=== PATIENT | male | born 1970 | race Caucasian/White ===

== ENCOUNTER 2024-09-05 11:27 | Day surgery (SDC) | payer OTHER ==
[~2024-09-05] VITALS: Ht 175.3 cm; Wt 76.4 kg
[~2024-09-05 11:27] MED LIST: IBLOOD GLUCOSE TEST STRIP 1 EA TEST VI PRN; LACTATED RINGER'S 1,000 ML IV SCH; LIDOCAINE HCL 1% 5 ML SDV INJ ONE; LIPITOR40 MG PO; LOW DOSE ASPIRI81 MG PO; METOPROLOL SUCC25 MG PO; MIDAZOLAM HCL 5 MG/5 ML VIAL IV PRN; VITAMIN B-12100 MCG PO; ZESTRIL10 MG PO; fentaNYL citrate 100 MCG/2 ML VIAL IV PRN
[2024-09-05 11:48] VITALS: BP 137/81
[2024-09-05] MEDS ORDERED: MIDAZOLAM HCL 5 MG/5 ML VIAL ONE (12:53)
[2024-09-05] MEDS ORDERED: fentaNYL citrate 100 MCG/2 ML VIAL ONE (12:53)
--- NOTE | 2024-09-05 14:10 | NUR ---
09/05/24 1410 Erlinda Savage 1402 PT TO PACU AWAKE DENIES PAIN REPORTS HE IS PASSING GAS.
[2024-09-05 14:31] VITALS: BP 116/78
--- NOTE | 2024-09-08 07:57 | OR ---
[facility] [address], [place] [address] Signed DATE OF OPERATION: 09/05/2024 SURGEON: Alla Guillen MD PREOPERATIVE DIAGNOSIS: Multiple polyps greater than 1 year ago (greater than 6). POSTOPERATIVE DIAGNOSIS: No evidence of polyps. PROCEDURE: Total colonoscopy to cecum. ANESTHESIA: Intravenous sedation; fentanyl 100 mcg and Versed 7 mg. INDICATION: This 54-year-old white man is a patient of Talat Freitas and underwent colonoscopy a year ago where he had more than 6 polyps in aggregate. He currently has no symptoms of bleeding, diarrhea, or constipation, but given the number of polyps last year, I did recommend a short-term interval surveillance colonoscopy. The risk of bleeding, infection, and perforation were reviewed with him. He understands and wished to proceed. FINDINGS: The prep was excellent. Complete colonoscopy was undertaken to the cecum with full intubation of the cecum. There was no evidence of polyps, although there were a few scattered diverticula. There are no other findings of note. DESCRIPTION OF PROCEDURE: The patient was brought to the endoscopy suite and placed in the lateral decubitus position, given intravenous sedation to the point of slurred speech and nystagmus. Digital rectal examination was normal. An Olympus video colonoscope was passed in the rectum and manipulated throughout the colon ultimately intubating the cecum itself. The ileocecal valve and appendiceal orifice were normal. The scope was withdrawn from that point and examination throughout showed no sign of abnormality, specifically no polyps, although there were few diverticula but minimal in amount and number. Retroflexed view of the rectum was normal. The scope was removed and the patient was taken to the recovery room in good condition. CONCLUDING DIAGNOSIS: Electronically Signed By: ALLA GUILLEN MD 09/08/24 0757 PATIENT NAME: GUERO BRAVO OPERATIVE REPORT DATE OF : 72 REPORT #: [id number] PHYSICIAN: ALLA GUILLEN MD PCP: TALAT FREITAS REPORT IS CONFIDENTIAL AND NOT TO BE RELEASED WITHOUT AUTHORIZATION [facility] [address] [place], [place] [address] Signed No evidence of polyps. PLAN: Recommend repeat colonoscopy in 10 years based on current guidelines, sooner if symptoms should develop. He will return to the ongoing care of ANGUS Hickey. MD IMAN Antonio/MODL /[id number] cc: ANGUS Hickey Copies: TALAT FREITAS ~ Electronically Signed By: ALLA GUILLEN MD 09/08/24 0757 PATIENT NAME: GUERO BRAVO OPERATIVE REPORT DATE OF : 72 REPORT #: [id number] PHYSICIAN: ALLA GUILLEN MD PCP: TALAT FREITAS REPORT IS CONFIDENTIAL AND NOT TO BE RELEASED WITHOUT AUTHORIZATION
== END 2024-09-05 14:40 | disposition home or self-care (01) ==
LOC: DS 11:27
PROVIDERS: ATTEND Surgery
PROC: 0DJD8ZZ Inspection of Lower Intestinal Tract, Via Natural or Artificial Opening Endoscopic (ICD-10-PCS; principal; 2024-09-05 13:00)
DX: Z12.11 Encounter for screening for malignant neoplasm of colon (principal); I25.2 Old myocardial infarction; Z72.89 Other problems related to lifestyle; Z79.899 Other long term (current) drug therapy; Z86.0100 Personal history of colon polyps, unspecified; Z87.19 Personal history of other diseases of the digestive system
CPT/HCPCS: 99153; G0500; J2250; J3010; J7121